=== PATIENT | female | born 1945 | race Caucasian/White ===

== ENCOUNTER → 2019-04-10 | Outpatient (CLI) | payer MEDICARE, OTHER ==
[~2019-04-10] MED LIST: ALBU2.5V8 INH; ATOR20TA58 PO; HEPARIN PF 500 UNIT/5 ML DISP.SYRIN. IVP ONE; HYDR-2145 PO; IOHEXOL 240 MG/ML 50ML VIAL. PO ONE; IOHEXOL 300 MG/ML 100ML VIAL. IV ONE; ONDA8TAB9 PO
--- NOTE | 2019-04-11 11:42 | RAD ---
Examination: CT NECK CHEST ABD PELVIS W CON History: Lung cancer-small cell Comparison/Correlation: 10/10/2018 CT chest without contrast Findings: Axial images of the neck, chest, abdomen, and pelvis were obtained following the oral contrast. Sagittal and coronal reformatted images were provided. Partially visualized paranasal sinuses are unremarkable. Parotid and submandibular glands are normal. Pharynx is symmetric. True and false cords are symmetric. No enlarged cervical lymph nodes are present. Right-sided infusion port is present with the tip terminating in the right atrium. Lower right paratracheal lymph nodes are present but not enlarged. Largest of these lymph nodes measures 0.6 cm diameter compared to the previous exam with the largest right paratracheal lymph node measured 2.1 cm in short axis diameter. There is a precarinal lymph node measuring up to 1.2 cm short axis diameter on axial image 25 of series 4. This previously measured up to 2.3 cm short axis diameter. Small pericardial effusion is present and of slightly high density with Hounsfield units of 24. Centrilobular emphysematous involvement of the lung lazaro is present. Lingular and minimal right middle lobe atelectasis and/or scarring is present. Spiculated process involving the right middle lobe corresponding to mass lesion seen at this level on the prior examination measures 2 cm x 1.7 cm on axial image 35 of series 4. Marked coronary arterial calcifications present. Small right pleural effusion is present. Diffuse emphysematous involvement of the lung lazaro noted. Small hiatal hernia is present. Liver and spleen are unremarkable. Pancreas is unremarkable. Adrenal glands are normal. Kidneys are unremarkable. No bowel obstruction or extraluminal gas. Umbilical midline abdominal wall hernia defect measuring 2.1 cm longitudinal is present. This hernia measures 1.2 cm transverse Spleen, pancreas, adrenal glands, and kidneys are unremarkable. Appendix is normal. Retroaortic left renal vein is present. Diverticulosis of the colon is present. No obstruction or extraluminal gas. No ascites or pelvic free fluid. No enlarged abdominal or pelvic lymph nodes. Nonenlarged aortocaval lymph nodes are present at the upper abdomen as well as to a lesser extent more inferiorly. Bladder is unremarkable. Bony structures are unremarkable. Impression: Marked improvement in superior mediastinal lymphadenopathy compared to the previous exam of 10/10/2018. There is an enlarged precarinal lymph node present but this also is notably decreased in size. Marked decrease in the right middle lobe mass. Currently has a scarred, spiculated appearance. Increased size of pericardial effusion which now has slightly complex density which may represent underlying proteinaceous and/or hemorrhagic components. Diverticulosis. Abdominal wall midline ventral hernia. PQRS Compliance Statement: One or more of the following individualized dose reduction techniques were utilized for this examination: 1. Automated exposure control 2. Adjustment of the mA and/or kV according to patient size 3. Use of iterative reconstruction technique : Dysphagia. Electronically signed by: Timbo Ramirez MD (04/11/2019 11:39 AM) [facility]
== END | disposition home or self-care (01) ==
LOC: CT 10:51
PROVIDERS: ATTEND Internal Medicine Hematology & Oncology
DX: C34.90 Malignant neoplasm of unspecified part of unspecified bronchus or lung (principal); J43.2 Centrilobular emphysema; J98.11 Atelectasis; I25.10 Atherosclerotic heart disease of native coronary artery without angina pectoris; J90 Pleural effusion, not elsewhere classified; K44.9 Diaphragmatic hernia without obstruction or gangrene; K42.9 Umbilical hernia without obstruction or gangrene; R59.0 Localized enlarged lymph nodes; I31.3 Pericardial effusion (noninflammatory); K43.9 Ventral hernia without obstruction or gangrene; I10 Essential (primary) hypertension; Z88.8 Allergy status to other drugs, medicaments and biological substances; Z87.891 Personal history of nicotine dependence
CPT/HCPCS: 70491; 71260; 74177; Q9966; Q9967

== ENCOUNTER 2019-04-17 06:44 | Outpatient (CLI) | payer MEDICARE, OTHER ==
[~2019-04-17] VITALS: Ht 156.2 cm; Wt 83.0 kg
[2019-04-17] VITALS (8 sets, daily range): BP systolic 136–206; BP diastolic 60–86
[2019-04-17 07:38] LABS: BASO % 0 % (0-3); EOS # 0.5 x10^3/uL (0.0-0.7); EOS % 7 % (0-3); HEMATOCRIT 34.2 % (36.0-47.0); HEMOGLOBIN 11.4 g/dL (12.0-15.5); LYMPH # 1.4 x10^3/uL (1.0-4.8); LYMPH % 17 % (24-48); MEAN CORPUSCULAR HEMOGLOBIN 32 pg (25-35); MEAN CORPUSCULAR HGB CONC 33 g/dL (31-37); MEAN CORPUSCULAR VOLUME 95 fL (79-100); MONO # 0.7 x10^3/uL (0.0-1.1); MONO % 9 % (0-9); NEUT # 5.3 x10^3/uL (1.8-7.7); NEUT % 67 % (31-73); PLATELET COUNT 215 x10^3/uL (140-400); RED CELL DISTRIBUTION WIDTH 16.5 % (11.5-14.5); WHITE BLOOD COUNT 7.9 x10^3/uL (4.0-11.0)
[2019-04-17 07:47] LABS: PROTHROMBIN TIME PATIENT 14.2 SEC (11.7-14.0)
[2019-04-17] MEDS ORDERED: HYDR-2145 PO (07:53)
[2019-04-17] MEDS ORDERED: ATOR20TA58 PO (07:53)
[2019-04-17] MEDS ORDERED: ALBU2.5V8 INH (07:53)
[2019-04-17] MEDS ORDERED: ONDA8TAB9 PO (07:53)
[2019-04-17] MEDS ORDERED: LIDOCAINE 1%/EPI 1:100,000 20 ML VIAL. ONE (08:40)
[2019-04-17] MEDS ORDERED: HEPARIN PF 500 UNIT/5 ML DISP.SYRIN. ONE (08:40)
[2019-04-17] MEDS ORDERED: VANCOMYCIN 1GM IVPB FOR OMNI 250 ML ONE (09:04)
[2019-04-17] MEDS ORDERED: fentaNYL PF VIAL 100 MCG/2 ML VIAL ONE (09:05)
[2019-04-17] MEDS ORDERED: MIDAZOLAM HCL/PF 2 MG/2 ML VIAL. ONE (09:05)
[2019-04-17] MEDS ORDERED: ONDANSETRON PF 4 MG/2 ML VIAL. ONE ×2 (09:05→09:21)
[2019-04-17] MEDS ORDERED: LIDOCAINE 1%/EPI 1:100,000 20 ML VIAL. INJ ONE (09:45)
[2019-04-17] MEDS ORDERED: MIDAZOLAM HCL/PF 2 MG/2 ML VIAL. IV ONE (09:45)
[2019-04-17] MEDS ORDERED: ONDANSETRON PF 4 MG/2 ML VIAL. IVP ONE (09:45)
[2019-04-17] MEDS ORDERED: VANCOMYCIN 1GM IVPB FOR OMNI 250 ML IV ONE (09:45)
[2019-04-17] MEDS ORDERED: fentaNYL PF VIAL 100 MCG/2 ML VIAL IV ONE (09:45)
[2019-04-17] MEDS ORDERED: HEPARIN PF 500 UNIT/5 ML DISP.SYRIN. IVP ONE (09:45)
[2019-04-17] MEDS ORDERED: hydrALAZINE 20 MG/ML VIAL. IVP ONE (10:00)
--- NOTE | 2019-04-17 10:12 | PDOC ---
MODERATE SEDATION ASSESSMENT RISKS/ALTERNATIVES Risks/Alternatives Risks and alternatives of this type of sedation and procedure discussed with: RISK/ALTERNATIVES: Patient H & P ON CHART H & P H & P on chart and reviewed for co-morbid conditions and appropriate labs. H&P ON CHART: Yes STATUS PREG STATUS ASSESSED: Yes MEDS/ALLERGIES REVIEWED Meds/Allergies Reviewed Medications and Allergies including time and route of recently administered narcotics and sedatives. MEDS/ALLERGIES REVIEWED: Yes ASA RATING ASA RATING: II AIRWAY ASSESSMENT Airway Assessment Airway patency, oral function limitations, presence of caps, crowns, dentures, partials, and ability to extend neck assessed. AIRWAY ASSESSMENT: Yes MALLAMPATI SCORE MALLAMPATI SCORE: II PRE-SEDATION ASSESSMENT PRE-SEDATION ASSESSMENT: Yes IRIS BERNAL MD Apr 17, 2019 10:12
--- NOTE | 2019-04-17 10:13 | PDOC ---
BRIEF OPERATIVE NOTE Pre-Op Diagnosis Port erosion Post-Op Diagnosis same Procedure Performed New left IJ port, removal of right IJ port Surgeon Ibrahima Anesthesia Type: Conscious Sedation Findings Port placement and port removal Complications No immediate IRIS BERNAL MD Apr 17, 2019 10:13
--- NOTE | 2019-04-17 12:01 | NUR ---
pt discharged to home with family. Instructions reviewed with pt. PIV dcd. Pt ambulated and tolerated PO
--- NOTE | 2019-04-17 14:35 | RAD ---
Procedure: Fluoroscopic and ultrasound-guided Port-A-Cath placement on the left, followed by fluoroscopic guided Port-A-Cath removal on the right Clinical Indication: Adult female requiring chemotherapy, with erosion of port on the right. Sedation: Conscious sedation was administered with a total intraprocedural lvqc-fs-hady time of 55 minutes. The patient was monitored by a qualified independent observer throughout the time of sedation. Please refer to the medical record for exact doses of medications utilized to achieve moderate sedation. Antibiotics: Antibiotic was administered intravenously within 1 hour of the procedure start time. Exposure: Kerma-Area Product: 1.3 Gycm2 OR Sterility: All elements of maximal sterile barrier technique including the use of a cap, mask, sterile gown, sterile gloves, large sterile sheet, appropriate hand hygiene, and 2% chlorhexidine for cutaneous antisepsis (or acceptable alternative antiseptic per current guidelines) were followed for this procedure. Consent: The procedure was explained in its entirety to the patient or the patients designated outside sales account representative by a member of the treatment team, including a discussion of the risks, benefits and commonly accepted alternatives to the procedure, as well as the expected consequences of no therapy whatsoever. Discussion of the risks included, but was not limited to, those that are most frequent and those that are rare but possibly severe or life-threatening, as well as the possibility of unforeseen complications. Technique and Findings: Following informed consent, the patient was prepped and draped in usual sterile fashion. Ultrasound interrogation of the left neck revealed patency and compressibility of the left internal jugular vein. A hardcopy ultrasound image was recorded as a 21-gauge micropuncture needle was used to gain access to this vessel. The needle was exchanged over a wire for a peel-away sheath. The skin over the left anterior chest wall was then copiously anesthetized with 1% lidocaine plus epinephrine. A small dermatotomy was made. Dissection techniques were used to create a pocket for the port. A Port-A-Cath was then tunneled subcutaneously towards the neck dermatotomy then deployed through the peel-away sheath under fluoroscopic guidance such that the distal tip resided in the proximal right atrium. The port was accessed and found to flush and aspirate with ease. The port was packed with heparin. The pocket was copiously irrigated with sterile saline then closed with deep interrupted and running subcuticular 4-0 Vicryl suture. Dermabond was used to close the left neck dermatotomy. Attention was then turned to the including right port. Fluoroscopy over this port demonstrated an intact IJ Port-A-Cath. 1% lidocaine was used to achieve local anesthesia over the port pocket. A dermatotomy was made and blunt dissection techniques were used to free the port from the pocket. The port was then removed in its entirety and hemostasis was achieved with manual compression. The pocket was copiously irrigated with sterile saline then closed with deep interrupted and subcuticular 4-0 Vicryl suture. The small area of erosion overlying the distal aspect of the port was minimally debrided and closed with deep interrupted 4-0 Vicryl suture as well. Postprocedural fluoroscopic spot view revealed no residual radiopaque foreign body on the right. Complications: No immediate Impression: 1. Ultrasound and fluoroscopic guided placement of a left Port-A-Cath as described. This port is suitable for use. 2. Fluoroscopic guided removal of a right Port-A-Cath as described.
== END 2019-04-17 12:03 | disposition home or self-care (01) ==
LOC: INTRAD 06:44
PROVIDERS: ATTEND Internal Medicine Hematology & Oncology
DX: T82.898A Other specified complication of vascular prosthetic devices, implants and grafts, initial encounter (principal); X58.XXXA Exposure to other specified factors, initial encounter; Y83.8 Other surgical procedures as the cause of abnormal reaction of the patient, or of later complication, without mention of misadventure at the time of the procedure; Y92.89 Other specified places as the place of occurrence of the external cause; Z79.01 Long term (current) use of anticoagulants
CPT/HCPCS: 36415; 36561; 36590; 76937; 77001; 85025; 85610; 99152; 99153; C1751; C1769; C1892; J1642; J2250; J2405; J3010; J3370; J3490

== ENCOUNTER → 2019-04-18 | Outpatient (CLI) | payer MEDICARE, OTHER ==
[2019-04-17 11:44] VITALS: BP 136/70
[~2019-04-18] MED LIST changes: +GADOTERATE 7.5 MMOL/15ML VIAL. IVP ONE; -HEPARIN PF 500 UNIT/5 ML DISP.SYRIN. IVP ONE; -IOHEXOL 240 MG/ML 50ML VIAL. PO ONE; -IOHEXOL 300 MG/ML 100ML VIAL. IV ONE
--- NOTE | 2019-04-18 11:12 | RAD ---
MRI Brain with and without contrast History: Lung cancer Technique: Multiplanar, multi sequential pre and postcontrast MR imaging was performed of the brain. Comparison: None Findings: There is no evidence of recent infarct or cytotoxic edema. The ventricles, sulci, and cisterns are within normal limits in size and configuration. There is no significant midline shift, intraaxial mass effect, or focal abnormal extra-axial fluid collection. There is scattered overall mild T2 and FLAIR hyperintense signal abnormality of the supratentorial parenchyma bilaterally symmetric in appearance without associated enhancement. There is no significant hemosiderin deposition of the brain parenchyma. There is no nodular parenchymal or leptomeningeal enhancement. There is preservation of the major intracranial flow-voids at the skull base. The cerebellar tonsils are normal in location. There is no significant abnormality of the pineal gland. There is mostly empty sella. Paranasal sinuses are overall aerated. The mastoid air cells are aerated. There is preserved marrow signal of the clivus. Impression: 1. There is no abnormal intracranial enhancement. Scattered overall mild T2 and FLAIR hyperintense signal abnormality of the supratentorial parenchyma bilaterally is nonspecific, more commonly due to chronic microvascular ischemic disease in a patient this age. Electronically signed by: Jeremy Escobedo MD (04/18/2019 11:09 AM) [id number]
== END ==
LOC: MRI 11:04
PROVIDERS: ATTEND Internal Medicine Hematology & Oncology
DX: C34.90 Malignant neoplasm of unspecified part of unspecified bronchus or lung (principal); I67.82 Cerebral ischemia; R94.02 Abnormal brain scan
CPT/HCPCS: 70553; A9575

== ENCOUNTER → 2019-07-12 | Outpatient (CLI) | payer MEDICARE, OTHER ==
[2019-04-17 11:44] VITALS: BP 136/70
[~2019-07-12] MED LIST changes: -GADOTERATE 7.5 MMOL/15ML VIAL. IVP ONE
--- NOTE | 2019-07-12 18:02 | RAD ---
EXAM: PET/CT SCAN INDICATION: Neuroendocrine tumor of lung COMPARISON: CT neck and chest abdomen and pelvis 04/10/2019 PET/CT SCAN TECHNIQUE: Approximately 60 minutes after the intravenous administration of 14.9 millicuries of F-18 fluorodeoxyglucose (FDG), PET imaging of the body from the base of the skull through the mid thighs was performed. Reconstruction in all 3 planes were performed. The patient's serum glucose level at the time of the F-18 FDG administration was 105 mg/dL. A noncontrast CT scan was obtained for attenuation correction and anatomic localization purposes only and is not considered a diagnostic CT scan. PQRS compliance Statement One or more of the following individualized dose reduction techniques were utilized for this study: 1. Automated exposure control 2. Adjustment of the mA and/or kV according to patient size 3. Use of iterative reconstruction technique FINDINGS: HEAD AND NECK: Physiologic radiotracer uptake in the brain, airway, parotid and submandibular glands. A small right thoracic inlet lymph node immediately posterior to the internal jugular vein and adjacent to the right common carotid artery measuring 7 mm short axis has slightly increased in size, previously 4 mm, and has increased FDG uptake with SUV max 4.05. A left level 2A cervical chain lymph node measuring 5 mm short axis is unchanged in size and has mild FDG uptake with SUV max 2.98. CHEST: Mediastinal blood pool SUV max is 3.1. The precarinal lymph node measuring 1 cm short axis is unchanged in size and has mild FDG uptake with SUV max 2.65. Small low right paratracheal lymph nodes and a subcarinal lymph node have mild FDG uptake with SUV max 2.3. The right middle lobe spiculated pulmonary nodule is slightly smaller, now 1.9 x 1.6 cm, grossly 2.0 x 1.7 cm, and has mild FDG uptake with SUV max 2.18. No new lymphadenopathy. Small to moderate pericardial effusion is unchanged. There is calcified atherosclerosis of the thoracic aorta and coronary arteries. Left chest wall port tip terminates in the superior cavoatrial junction. Mild atelectasis in the right middle lobe and lingula. ABDOMEN AND PELVIS: There is physiologic radiotracer uptake. SUV max in the liver is 2.7. No lymphadenopathy or abnormal radiotracer uptake in the abdomen and pelvis. Gallbladder surgically absent. There is severe calcified aortoiliac atherosclerosis. MUSCULOSKELETAL: No abnormal radiotracer uptake. Multilevel degenerative disc disease in the spine. IMPRESSION: 1. Slightly decreased size of right middle lobe spiculated pulmonary nodule with SUV max 2.3. 2. Mild FDG uptake in several small lymph nodes in the neck and chest: A 7 mm right thoracic inlet lymph node has slightly increased in size and has mildly increased FDG uptake with SUV max of 4.05. Unchanged small left level IIa cervical chain lymph node has SUV max 2.98. Unchanged small precarinal and low right paratracheal lymph nodes have SUV max of 2.3. 3. No abnormal radiotracer uptake or lymphadenopathy in the abdomen and pelvis. Electronically signed by: Liz Lopez MD (07/12/2019 5:59 PM) [id number]
== END | disposition home or self-care (01) ==
LOC: PETSC 10:04
PROVIDERS: ATTEND Internal Medicine Hematology & Oncology
DX: C34.90 Malignant neoplasm of unspecified part of unspecified bronchus or lung (principal); R91.1 Solitary pulmonary nodule; Z90.49 Acquired absence of other specified parts of digestive tract; I31.3 Pericardial effusion (noninflammatory); I70.0 Atherosclerosis of aorta; J98.11 Atelectasis
CPT/HCPCS: 78815; A9552

== ENCOUNTER → 2019-08-05 | Outpatient (CLI) | payer MEDICARE, OTHER ==
[2019-07-17 11:34] VITALS: BP 140/73
[~2019-08-05] MED LIST changes: +GADOTERATE 7.5 MMOL/15ML VIAL. IVP ONE
--- NOTE | 2019-08-05 09:45 | RAD ---
EXAMINATION: Magnetic resonance imaging (MRI) of the brain and brainstem without and with contrast 08/05/2019 8:15 AM HISTORY: History of lung cancer TECHNIQUE: Multiplanar multi-weighted MRI of the brain and brainstem was performed without and with intravenous contrast using the general brain protocol. Contrast information: 15 mL Gadolinium based contrast COMPARISON: None available. FINDINGS: The scalp and calvarium are normal. The superior sagittal sinus demonstrates normal venous flow. The corpus callosum is normal in shape and signal intensity. The posterior fossa is unremarkable. There is a partially empty sella turcica. The brainstem and craniocervical junction are unremarkable. There are T2/FLAIR signal hyperintense foci in the periventricular and subcortical white matter most suggestive of mild chronic small vessel ischemic changes. Diffusion weighted images reveal no hyperintensities to suggest acute cerebral infarction. There is a punctate focus of susceptibility artifact in the left frontal lobe, left middle frontal gyrus, which may represent a tiny cavernoma or remote microhemorrhage (series 7, image 15). The ventricles are normal in size and position without evidence of hydrocephalus. Postcontrast enhanced images are limited by motion artifact. There are no areas of abnormal contrast enhancement. The paranasal sinuses are normal. The visualized portions of the mastoids are unremarkable. The orbits appear normal. Normal flow voids are demonstrated in the carotid arteries and basilar artery. IMPRESSION: 1. No evidence for intracranial metastatic disease, although postcontrast enhanced images are limited by motion artifact. 2. No evidence for acute or subacute ischemia. 3. There are T2/FLAIR signal hyperintense foci in the periventricular and subcortical white matter most suggestive of mild chronic small vessel ischemic changes. 4. Punctate microhemorrhage or tiny cavernoma in the left middle frontal gyrus. Electronically signed by: Denia Chau MD (08/05/2019 9:43 AM) [facility]
== END | disposition home or self-care (01) ==
LOC: MRI 07:42
PROVIDERS: ATTEND Internal Medicine Hematology & Oncology
DX: C34.2 Malignant neoplasm of middle lobe, bronchus or lung (principal)
CPT/HCPCS: 70553; A9575

== ENCOUNTER → 2019-08-07 | Outpatient (CLI) | payer MEDICARE, OTHER ==
[2019-07-17 11:34] VITALS: BP 140/73
[~2019-08-07] MED LIST changes: -GADOTERATE 7.5 MMOL/15ML VIAL. IVP ONE
[2019-08-07 10:50] LABS: BASO % 0 % (0-3); EOS # 0.2 x10^3/uL (0.0-0.7); EOS % 2 % (0-3); HEMATOCRIT 37.2 % (36.0-47.0); HEMOGLOBIN 12.5 g/dL (12.0-15.5); LYMPH # 1.7 x10^3/uL (1.0-4.8); LYMPH % 24 % (24-48); MEAN CORPUSCULAR HEMOGLOBIN 29 pg (25-35); MEAN CORPUSCULAR HGB CONC 34 g/dL (31-37); MEAN CORPUSCULAR VOLUME 86 fL (79-100); MONO # 0.7 x10^3/uL (0.0-1.1); MONO % 10 % (0-9); NEUT # 4.5 x10^3/uL (1.8-7.7); NEUT % 63 % (31-73); PLATELET COUNT 192 x10^3/uL (140-400); RED BLOOD COUNT 4.33 x10^6/uL (3.50-5.40); WHITE BLOOD COUNT 7.2 x10^3/uL (4.0-11.0)
[2019-08-07 11:02] LABS: CREATININE 0.9 mg/dL (0.6-1.0); GFR 61.2; POTASSIUM 3.6 mmol/L (3.5-5.1)
[2019-08-07 11:06] LABS: ALBUMIN 3.6 g/dL (3.4-5.0); DIRECT BILIRUBIN 0.1 mg/dL (0.0-0.2); MAGNESIUM 1.6 mg/dL (1.8-2.4); TOTAL BILIRUBIN 0.5 mg/dL (0.2-1.0); TOTAL PROTEIN 7.6 g/dL (6.4-8.2)
[2019-08-07 11:15] LABS: FREE T4 1.01 ng/dL (0.76-1.46); THYROID STIM HORMONE (TSH) 1.202 uIU/mL (0.358-3.74)
== END ==
LOC: SPEC 10:09
PROVIDERS: ATTEND Physician Assistant
DX: C34.2 Malignant neoplasm of middle lobe, bronchus or lung (principal); I10 Essential (primary) hypertension
CPT/HCPCS: 36415; 80048; 80076; 83615; 83735; 84439; 84443; 85025

== ENCOUNTER → 2019-08-28 | Outpatient (CLI) | payer MEDICARE, OTHER ==
[2019-07-17 11:34] VITALS: BP 140/73
[2019-08-28 08:18] LABS: BASO % 1 % (0-3); EOS # 0.2 x10^3/uL (0.0-0.7); EOS % 2 % (0-3); HEMATOCRIT 36.8 % (36.0-47.0); HEMOGLOBIN 12.5 g/dL (12.0-15.5); LYMPH # 1.6 x10^3/uL (1.0-4.8); LYMPH % 24 % (24-48); MEAN CORPUSCULAR HEMOGLOBIN 29 pg (25-35); MEAN CORPUSCULAR HGB CONC 34 g/dL (31-37); MEAN CORPUSCULAR VOLUME 86 fL (79-100); MONO # 0.7 x10^3/uL (0.0-1.1); MONO % 11 % (0-9); NEUT # 4.2 x10^3/uL (1.8-7.7); NEUT % 62 % (31-73); PLATELET COUNT 200 x10^3/uL (140-400); RED BLOOD COUNT 4.29 x10^6/uL (3.50-5.40); RED CELL DISTRIBUTION WIDTH 16.7 % (11.5-14.5); WHITE BLOOD COUNT 6.7 x10^3/uL (4.0-11.0)
[2019-08-28 08:32] LABS: ALBUMIN 3.6 g/dL (3.4-5.0); ALBUMIN/GLOBULIN RATIO 0.9 (1.0-1.7); CREATININE 0.9 mg/dL (0.6-1.0); GFR 61.2; MAGNESIUM 2.1 mg/dL (1.8-2.4); TOTAL BILIRUBIN 0.3 mg/dL (0.2-1.0); TOTAL PROTEIN 7.7 g/dL (6.4-8.2)
[2019-08-28 08:40] LABS: FREE T4 0.89 ng/dL (0.76-1.46); THYROID STIM HORMONE (TSH) 1.706 uIU/mL (0.358-3.74)
== END | disposition home or self-care (01) ==
LOC: ONCLAB 08:03
PROVIDERS: ATTEND Physician Assistant
DX: C34.2 Malignant neoplasm of middle lobe, bronchus or lung (principal); I10 Essential (primary) hypertension
CPT/HCPCS: 36415; 80053; 83615; 83735; 84439; 84443; 85025

== ENCOUNTER → 2019-09-18 | Outpatient (CLI) | payer MEDICARE, OTHER ==
[2019-07-17 11:34] VITALS: BP 140/73
[2019-09-18 09:10] LABS: BASO % 1 % (0-3); EOS # 0.2 x10^3/uL (0.0-0.7); EOS % 2 % (0-3); HEMATOCRIT 37.1 % (36.0-47.0); HEMOGLOBIN 12.6 g/dL (12.0-15.5); LYMPH # 1.6 x10^3/uL (1.0-4.8); LYMPH % 21 % (24-48); MEAN CORPUSCULAR HEMOGLOBIN 30 pg (25-35); MEAN CORPUSCULAR HGB CONC 34 g/dL (31-37); MEAN CORPUSCULAR VOLUME 87 fL (79-100); MONO # 0.9 x10^3/uL (0.0-1.1); MONO % 11 % (0-9); NEUT # 4.8 x10^3/uL (1.8-7.7); NEUT % 65 % (31-73); PLATELET COUNT 199 x10^3/uL (140-400); RED BLOOD COUNT 4.25 x10^6/uL (3.50-5.40); RED CELL DISTRIBUTION WIDTH 16.4 % (11.5-14.5); WHITE BLOOD COUNT 7.5 x10^3/uL (4.0-11.0)
[2019-09-18 09:23] LABS: CALCIUM 9.2 mg/dL (8.5-10.1); GFR 54.2; POTASSIUM 3.8 mmol/L (3.5-5.1)
[2019-09-18 09:28] LABS: ALBUMIN 3.7 g/dL (3.4-5.0); ALBUMIN/GLOBULIN RATIO 0.9 (1.0-1.7); TOTAL BILIRUBIN 0.4 mg/dL (0.2-1.0); TOTAL PROTEIN 7.8 g/dL (6.4-8.2)
== END | disposition home or self-care (01) ==
LOC: ONCLAB 08:21
PROVIDERS: ATTEND Internal Medicine Hematology & Oncology
DX: C34.2 Malignant neoplasm of middle lobe, bronchus or lung (principal); E03.9 Hypothyroidism, unspecified
CPT/HCPCS: 36415; 80053; 84443; 85025

== ENCOUNTER → 2019-10-09 | Outpatient (CLI) | payer MEDICARE, OTHER ==
[2019-07-17 11:34] VITALS: BP 140/73
[2019-10-09 09:28] LABS: BASO % 0 % (0-3); EOS # 0.2 x10^3/uL (0.0-0.7); EOS % 2 % (0-3); HEMATOCRIT 36.8 % (36.0-47.0); HEMOGLOBIN 12.4 g/dL (12.0-15.5); LYMPH # 1.9 x10^3/uL (1.0-4.8); LYMPH % 23 % (24-48); MEAN CORPUSCULAR HEMOGLOBIN 30 pg (25-35); MEAN CORPUSCULAR HGB CONC 34 g/dL (31-37); MEAN CORPUSCULAR VOLUME 88 fL (79-100); MONO # 0.9 x10^3/uL (0.0-1.1); MONO % 11 % (0-9); NEUT # 5.2 x10^3/uL (1.8-7.7); NEUT % 63 % (31-73); PLATELET COUNT 247 x10^3/uL (140-400); RED BLOOD COUNT 4.18 x10^6/uL (3.50-5.40); RED CELL DISTRIBUTION WIDTH 16.3 % (11.5-14.5); WHITE BLOOD COUNT 8.2 x10^3/uL (4.0-11.0)
[2019-10-09 09:36] LABS: CALCIUM 8.8 mg/dL (8.5-10.1); CREATININE 0.8 mg/dL (0.6-1.0); GFR 70.1
[2019-10-09 09:42] LABS: ALBUMIN 3.5 g/dL (3.4-5.0); ALBUMIN/GLOBULIN RATIO 0.8 (1.0-1.7); DIRECT BILIRUBIN 0.1 mg/dL (0.0-0.2); TOTAL BILIRUBIN 0.4 mg/dL (0.2-1.0); TOTAL PROTEIN 7.7 g/dL (6.4-8.2)
== END | disposition home or self-care (01) ==
LOC: ONCLAB 08:21
PROVIDERS: ATTEND Internal Medicine Hematology & Oncology
DX: C34.2 Malignant neoplasm of middle lobe, bronchus or lung (principal)
CPT/HCPCS: 36415; 80053; 82248; 82607; 82728; 82746; 83540; 83550; 83615; 83735; 85025

== ENCOUNTER → 2019-10-29 | Outpatient (CLI) | payer MEDICARE, OTHER ==
[2019-07-17 11:34] VITALS: BP 140/73
[~2019-10-29] MED LIST changes: +CONTRAST GIVEN. MC PRN; +IOHEXOL 240 MG/ML 50ML VIAL. PO ONE; +IOHEXOL 300 MG/ML 100ML VIAL. IV ONE
--- NOTE | 2019-10-29 16:40 | RAD ---
EXAM: CT Chest with IV contrast INDICATION: Reason: SMALL CELL LUNG CANCER / Spl. Instructions: IV OMNI 300 75 MLS AND PO OMNI 240 50 MLS / History: TECHNIQUE: Multi-detector row CT images were acquired from the thoracic inlet through the upper abdomen with the use of IV contrast. Sagittal and coronal images were acquired from the transaxial data. All CT scans performed at this facility utilize dose optimization techniques as appropriate to the exam, including the following: Automated exposure control and adjustment of the mA and/or KV according to patient size (this includes techniques or standardized protocols for targeted exams where dose is indication/reason for exam). IV CONTRAST: Administered COMPARISON: 04/10/2019 CT soft tissue neck, and PET CT of 07/12/2019 FINDINGS: CARDIOVASCULAR: Persistent pericardial effusion measuring up to 1.3 cm in depth over the left ventricular free wall is present along with dense multivessel coronary calcifications and dense aortic calcifications including and calcifications in the aortic valve. No thoracic aortic aneurysm or evidence of flow-limiting stenosis. Left tunneled chest port is present with tip near the cavoatrial junction. MEDIASTINUM & LINA: No mass or adenopathy. LUNGS: Further decrease in size of the spiculated right middle lobe nodule along the major fissure with sacculations extending to the minor fissure and anterolateral surface lateral segment right middle lobe. On this exam, it measures 2.4 cm long by 1.2 cm tall by 1.8 cm wide, compared with the breath-hold CT measurement on 04/10/2019 of 2.8 x 1.4 x 2.1 cm (sagittal image 54 series 6 and axial image 33 series 2 this exam compared with sagittal image 89 series 10 and axial image 35 series 4 on 04/10/2019). Centrilobular pattern emphysema and numerous tiny micronodules are identified primarily in the bilateral upper lobes, similar to prior. PLEURAL SPACE: No pleural effusions or pneumothorax. OSSEOUS & SOFT TISSUE: Hypertrophied lower inner quadrant left breast vein is redemonstrated, communicating with the right internal mammary vein. No chest wall masses or axillary adenopathy. No acute or aggressive appearing osseous lesions. ABDOMEN: Left retroaortic renal vein. Cholecystectomy. Mild right renal cortical atrophy, partially imaged. IMPRESSION: Further decrease in size of the right middle lobe spiculated lung mass and otherwise stable findings in the chest including multiple tiny pulmonary micronodules, centrilobular emphysema, and moderately advanced atherosclerotic changes in the cardiovascular system with calcifications at the aortic valve as well and a moderate-sized pericardial effusion. Electronically signed by: Madeleine Carlin MD (10/29/2019 4:37 PM) [id number]
== END | disposition home or self-care (01) ==
LOC: CT 10:05
PROVIDERS: ATTEND Internal Medicine Hematology & Oncology
DX: C34.2 Malignant neoplasm of middle lobe, bronchus or lung (principal); R91.8 Other nonspecific abnormal finding of lung field; I25.10 Atherosclerotic heart disease of native coronary artery without angina pectoris; I70.0 Atherosclerosis of aorta; I31.3 Pericardial effusion (noninflammatory); J43.2 Centrilobular emphysema; N26.1 Atrophy of kidney (terminal); Z90.49 Acquired absence of other specified parts of digestive tract
CPT/HCPCS: 71260; 74177; Q9966; Q9967

== ENCOUNTER → 2019-10-30 | Outpatient (CLI) | payer MEDICARE, OTHER ==
[2019-07-17 11:34] VITALS: BP 140/73
[~2019-10-30] MED LIST changes: -CONTRAST GIVEN. MC PRN; -IOHEXOL 240 MG/ML 50ML VIAL. PO ONE; -IOHEXOL 300 MG/ML 100ML VIAL. IV ONE
[2019-10-30 09:09] LABS: BASO % 0 % (0-3); CALCIUM 8.8 mg/dL (8.5-10.1); EOS # 0.1 x10^3/uL (0.0-0.7); EOS % 2 % (0-3); GFR 54.2; HEMATOCRIT 36.1 % (36.0-47.0); LYMPH # 1.7 x10^3/uL (1.0-4.8); LYMPH % 21 % (24-48); MEAN CORPUSCULAR HEMOGLOBIN 30 pg (25-35); MEAN CORPUSCULAR HGB CONC 33 g/dL (31-37); MEAN CORPUSCULAR VOLUME 89 fL (79-100); MONO % 12 % (0-9); NEUT % 64 % (31-73); PLATELET COUNT 184 x10^3/uL (140-400); POTASSIUM 3.7 mmol/L (3.5-5.1); RED BLOOD COUNT 4.05 x10^6/uL (3.50-5.40); RED CELL DISTRIBUTION WIDTH 15.3 % (11.5-14.5); WHITE BLOOD COUNT 7.8 x10^3/uL (4.0-11.0)
[2019-10-30 09:14] LABS: ALBUMIN 3.6 g/dL (3.4-5.0); ALBUMIN/GLOBULIN RATIO 0.9 (1.0-1.7); TOTAL BILIRUBIN 0.3 mg/dL (0.2-1.0); TOTAL PROTEIN 7.4 g/dL (6.4-8.2)
== END | disposition home or self-care (01) ==
LOC: ONCLAB 08:41
PROVIDERS: ATTEND Physician Assistant
DX: C34.2 Malignant neoplasm of middle lobe, bronchus or lung (principal)
CPT/HCPCS: 36415; 80053; 83615; 85025

== ENCOUNTER → 2019-11-05 | Outpatient (CLI) | payer MEDICARE, OTHER ==
[2019-07-17 11:34] VITALS: BP 140/73
[~2019-11-05] MED LIST changes: +GADOTERATE 7.5 MMOL/15ML VIAL. IVP ONE
--- NOTE | 2019-11-05 11:53 | RAD ---
MR BRAIN WITH CONTRAST 11/05/2019 HISTORY: Reason: SMALL CELL LUNG CA / Spl. Instructions: 15ML DOTAREM / History: COMPARISON: MRI of the brain April 18, 2019, August 05, 2019 TECHNIQUE: Multiplanar multisequence MRI imaging of the brain was performed before and after the administration of contrast FINDINGS: Mild patchy periventricular and deep white matter high T2 hyperintensities are seen, similar to prior exams, consistent with chronic small vessel disease. No focal mass or masslike enhancement is identified.. No restricted diffusion to indicate an acute infarct. No evidence of acute intracranial hemorrhage. No acute extra-axial fluid collections are identified. There is no mass effect or midline shift. Ventricles and basilar cisterns are unremarkable. Vascular flow voids are unremarkable. Globes and orbits are unremarkable. IMPRESSION: No evidence of acute intracranial abnormality is identified. No evidence of intracranial metastatic disease is identified. Electronically signed by: Walt Jordan MD (11/05/2019 11:50 AM) [id number]
== END | disposition home or self-care (01) ==
LOC: MRI 10:09
PROVIDERS: ATTEND Physician Assistant
DX: C34.2 Malignant neoplasm of middle lobe, bronchus or lung (principal)
CPT/HCPCS: 70553; A9575

== ENCOUNTER → 2019-11-20 | Outpatient (CLI) | payer MEDICARE, OTHER ==
[2019-07-17 11:34] VITALS: BP 140/73
[~2019-11-20] MED LIST changes: -GADOTERATE 7.5 MMOL/15ML VIAL. IVP ONE
[2019-11-20 08:12] LABS: BASO % 1 % (0-3); EOS # 0.1 x10^3/uL (0.0-0.7); EOS % 2 % (0-3); HEMATOCRIT 36.5 % (36.0-47.0); HEMOGLOBIN 12.6 g/dL (12.0-15.5); LYMPH # 1.2 x10^3/uL (1.0-4.8); LYMPH % 16 % (24-48); MEAN CORPUSCULAR HEMOGLOBIN 30 pg (25-35); MEAN CORPUSCULAR HGB CONC 35 g/dL (31-37); MEAN CORPUSCULAR VOLUME 88 fL (79-100); MONO # 0.9 x10^3/uL (0.0-1.1); MONO % 12 % (0-9); NEUT # 5.3 x10^3/uL (1.8-7.7); NEUT % 71 % (31-73); PLATELET COUNT 186 x10^3/uL (140-400); RED BLOOD COUNT 4.15 x10^6/uL (3.50-5.40); RED CELL DISTRIBUTION WIDTH 14.6 % (11.5-14.5); WHITE BLOOD COUNT 7.5 x10^3/uL (4.0-11.0)
[2019-11-20 08:25] LABS: CALCIUM 9.1 mg/dL (8.5-10.1); CREATININE 0.8 mg/dL (0.6-1.0); GFR 70.1; POTASSIUM 3.4 mmol/L (3.5-5.1)
[2019-11-20 08:31] LABS: ALBUMIN 3.7 g/dL (3.4-5.0); ALBUMIN/GLOBULIN RATIO 0.9 (1.0-1.7); TOTAL BILIRUBIN 0.4 mg/dL (0.2-1.0); TOTAL PROTEIN 7.8 g/dL (6.4-8.2)
== END | disposition home or self-care (01) ==
LOC: ONCLAB 08:01
PROVIDERS: ATTEND Internal Medicine Hematology & Oncology
DX: C34.2 Malignant neoplasm of middle lobe, bronchus or lung (principal)
CPT/HCPCS: 36415; 80053; 84443; 85025

== ENCOUNTER → 2019-12-11 | Outpatient (CLI) | payer MEDICARE, OTHER ==
[2019-07-17 11:34] VITALS: BP 140/73
[2019-12-11 09:10] LABS: BASO % 1 % (0-3); EOS # 0.3 x10^3/uL (0.0-0.7); EOS % 5 % (0-3); HEMOGLOBIN 12.7 g/dL (12.0-15.5); LYMPH # 1.4 x10^3/uL (1.0-4.8); LYMPH % 19 % (24-48); MEAN CORPUSCULAR HEMOGLOBIN 30 pg (25-35); MEAN CORPUSCULAR HGB CONC 33 g/dL (31-37); MEAN CORPUSCULAR VOLUME 89 fL (79-100); MONO # 0.9 x10^3/uL (0.0-1.1); MONO % 12 % (0-9); NEUT # 4.7 x10^3/uL (1.8-7.7); NEUT % 64 % (31-73); PLATELET COUNT 224 x10^3/uL (140-400); RED BLOOD COUNT 4.25 x10^6/uL (3.50-5.40); RED CELL DISTRIBUTION WIDTH 14.6 % (11.5-14.5); WHITE BLOOD COUNT 7.4 x10^3/uL (4.0-11.0)
[2019-12-11 09:19] LABS: CALCIUM 9.4 mg/dL (8.5-10.1); CREATININE 0.8 mg/dL (0.6-1.0); GFR 70.1; POTASSIUM 3.8 mmol/L (3.5-5.1)
[2019-12-11 09:25] LABS: ALBUMIN 3.7 g/dL (3.4-5.0); ALBUMIN/GLOBULIN RATIO 0.8 (1.0-1.7); TOTAL BILIRUBIN 0.5 mg/dL (0.2-1.0); TOTAL PROTEIN 8.1 g/dL (6.4-8.2)
[2019-12-11 09:33] LABS: FREE T4 0.95 ng/dL (0.76-1.46); THYROID STIM HORMONE (TSH) 2.097 uIU/mL (0.358-3.74)
== END ==
LOC: ONCLAB 08:59
PROVIDERS: ATTEND Internal Medicine Hematology & Oncology
DX: C34.2 Malignant neoplasm of middle lobe, bronchus or lung (principal)
CPT/HCPCS: 36415; 80053; 84439; 84443; 85025

== ENCOUNTER → 2020-01-08 | Outpatient (CLI) | payer MEDICARE, OTHER ==
[2019-07-17 11:34] VITALS: BP 140/73
[2020-01-08 11:10] LABS: BASO # 0.1 x10^3/uL (0.0-0.2); BASO % 1 % (0-3); EOS # 0.7 x10^3/uL (0.0-0.7); EOS % 9 % (0-3); HEMATOCRIT 37.6 % (36.0-47.0); HEMOGLOBIN 12.7 g/dL (12.0-15.5); LYMPH # 1.4 x10^3/uL (1.0-4.8); LYMPH % 17 % (24-48); MEAN CORPUSCULAR HEMOGLOBIN 30 pg (25-35); MEAN CORPUSCULAR HGB CONC 34 g/dL (31-37); MEAN CORPUSCULAR VOLUME 89 fL (79-100); MONO # 0.7 x10^3/uL (0.0-1.1); MONO % 9 % (0-9); NEUT # 5.3 x10^3/uL (1.8-7.7); NEUT % 64 % (31-73); PLATELET COUNT 186 x10^3/uL (140-400); RED BLOOD COUNT 4.24 x10^6/uL (3.50-5.40); RED CELL DISTRIBUTION WIDTH 14.2 % (11.5-14.5); WHITE BLOOD COUNT 8.2 x10^3/uL (4.0-11.0)
[2020-01-08 11:24] LABS: CREATININE 0.9 mg/dL (0.6-1.0); GFR 61.2; POTASSIUM 3.9 mmol/L (3.5-5.1)
[2020-01-08 11:30] LABS: ALBUMIN 3.8 g/dL (3.4-5.0); TOTAL BILIRUBIN 0.5 mg/dL (0.2-1.0); TOTAL PROTEIN 7.6 g/dL (6.4-8.2)
[2020-01-09 14:12] LABS: KAPPA FREE 37.5 mg/L (3.3-19.4); KAPPA LAMBDA RATIO 2.18 (0.26-1.65); LAMBDA FREE 17.2 mg/L (5.7-26.3)
[2020-01-10 07:20] LABS: ALBUM 3.9 g/dL (2.9-4.4); ALPHA 1 0.3 g/dL (0.0-0.4); ALPHA 2 0.7 g/dL (0.4-1.0); BETA 0.9 g/dL (0.7-1.3); GAMMA 1.2 g/dL (0.4-1.8); SPEP AG RATIO 1.3 (0.7-1.7)
[2020-01-10 14:12] LABS: IMMUNOGLOBULIN A 221 mg/dL (64-422); IMMUNOGLOBULIN G 1250 mg/dL (586-1602); IMMUNOGLOBULIN M 99 mg/dL (26-217)
== END ==
LOC: ONCLAB 10:44
PROVIDERS: ATTEND Internal Medicine Hematology & Oncology
DX: C34.2 Malignant neoplasm of middle lobe, bronchus or lung (principal); D89.2 Hypergammaglobulinemia, unspecified
CPT/HCPCS: 36415; 80053; 82784; 83520; 84165; 85025; 86334

== ENCOUNTER → 2020-01-21 | Outpatient (CLI) | payer MEDICARE, OTHER ==
[2019-07-17 11:34] VITALS: BP 140/73
[2020-01-21 09:14] LABS: BASO % 1 % (0-3); EOS # 0.5 x10^3/uL (0.0-0.7); EOS % 6 % (0-3); HEMATOCRIT 37.1 % (36.0-47.0); HEMOGLOBIN 12.4 g/dL (12.0-15.5); LYMPH # 1.8 x10^3/uL (1.0-4.8); LYMPH % 23 % (24-48); MEAN CORPUSCULAR HEMOGLOBIN 30 pg (25-35); MEAN CORPUSCULAR HGB CONC 33 g/dL (31-37); MEAN CORPUSCULAR VOLUME 90 fL (79-100); MONO # 0.9 x10^3/uL (0.0-1.1); MONO % 12 % (0-9); NEUT # 4.7 x10^3/uL (1.8-7.7); NEUT % 59 % (31-73); PLATELET COUNT 181 x10^3/uL (140-400); RED BLOOD COUNT 4.14 x10^6/uL (3.50-5.40); RED CELL DISTRIBUTION WIDTH 15.1 % (11.5-14.5); WHITE BLOOD COUNT 7.9 x10^3/uL (4.0-11.0)
[2020-01-21 09:34] LABS: CALCIUM 8.9 mg/dL (8.5-10.1); CREATININE 0.9 mg/dL (0.6-1.0); GFR 61.2; POTASSIUM 4.3 mmol/L (3.5-5.1)
[2020-01-21 09:40] LABS: ALBUMIN 3.3 g/dL (3.4-5.0); ALBUMIN/GLOBULIN RATIO 0.9 (1.0-1.7); TOTAL BILIRUBIN 0.4 mg/dL (0.2-1.0); TOTAL PROTEIN 6.9 g/dL (6.4-8.2)
== END ==
LOC: ONCLAB 09:00
PROVIDERS: ATTEND Internal Medicine Hematology & Oncology
DX: C34.2 Malignant neoplasm of middle lobe, bronchus or lung (principal)
CPT/HCPCS: 36415; 80053; 85025

== ENCOUNTER → 2020-02-11 | Outpatient (CLI) | payer MEDICARE, OTHER ==
[2019-07-17 11:34] VITALS: BP 140/73
[2020-02-11 10:35] LABS: BASO % 1 % (0-3); EOS # 0.2 x10^3/uL (0.0-0.7); EOS % 3 % (0-3); HEMATOCRIT 33.8 % (36.0-47.0); HEMOGLOBIN 11.4 g/dL (12.0-15.5); LYMPH # 1.4 x10^3/uL (1.0-4.8); LYMPH % 20 % (24-48); MEAN CORPUSCULAR HEMOGLOBIN 30 pg (25-35); MEAN CORPUSCULAR HGB CONC 34 g/dL (31-37); MEAN CORPUSCULAR VOLUME 89 fL (79-100); MONO # 0.8 x10^3/uL (0.0-1.1); MONO % 12 % (0-9); NEUT # 4.3 x10^3/uL (1.8-7.7); NEUT % 64 % (31-73); PLATELET COUNT 197 x10^3/uL (140-400); WHITE BLOOD COUNT 6.8 x10^3/uL (4.0-11.0)
[2020-02-11 10:49] LABS: CALCIUM 9.1 mg/dL (8.5-10.1); CREATININE 0.7 mg/dL (0.6-1.0); GFR 81.8; POTASSIUM 3.7 mmol/L (3.5-5.1)
[2020-02-11 10:55] LABS: ALBUMIN 3.5 g/dL (3.4-5.0); ALBUMIN/GLOBULIN RATIO 0.9 (1.0-1.7); TOTAL BILIRUBIN 0.3 mg/dL (0.2-1.0); TOTAL PROTEIN 7.3 g/dL (6.4-8.2)
[2020-02-11 11:05] LABS: FREE T4 0.83 ng/dL (0.76-1.46); THYROID STIM HORMONE (TSH) 1.644 uIU/mL (0.358-3.74)
== END ==
LOC: ONCLAB 09:43
PROVIDERS: ATTEND Internal Medicine Hematology & Oncology
DX: C34.2 Malignant neoplasm of middle lobe, bronchus or lung (principal); I10 Essential (primary) hypertension
CPT/HCPCS: 36415; 80053; 84439; 84443; 85025

== ENCOUNTER → 2020-02-25 | Outpatient (CLI) | payer MEDICARE, OTHER ==
[2019-07-17 11:34] VITALS: BP 140/73
[~2020-02-25] MED LIST changes: +GADOTERATE 7.5 MMOL/15ML VIAL. IVP ONE
--- NOTE | 2020-02-25 11:05 | RAD ---
MRI of the Brain without and with Contrast 02/25/2020 Clinical History: Small cell lung cancer. Technique: Unenhanced T1-weighted sagittal and axial and FLAIR, T2-weighted, gradient echo and diffus ion-weighted axial images of the brain were obtained. After the intravenous administration of 15 cc o f CLARISCAN, enhanced T1-weighted axial, sagittal and coronal images of the brain were obtained. Findings: Comparison study is dated 11/05/2019. Images from the study are degraded by patient motion. There is generalized parenchymal atrophy. Patchy, confluent and multiple small focal areas of abnorma lly increased signal intensity are seen within the periventricular and subcortical white matter of luis th cerebral hemispheres on the FLAIR and T2-weighted images consistent with areas of small vessel isc hemic disease. These have not significantly changed. No acute parenchymal abnormality is seen. No abnormal area of contrast enhancement is noted. No extra -axial fluid collection is seen. There is no MRI evidence of acute ischemia/infarction. Very mild mucosal thickening is seen scattered throughout the paranasal sinuses. Normal flow voids ar e seen within the major vascular structures surrounding the brain parenchyma. Impression: No acute parenchymal abnormality is seen. There is no MRI evidence of metastatic disease involving the brain parenchyma. Electronically signed by: Jong Cuellar MD (02/25/2020 11:03 AM) [id number]
== END ==
LOC: MRI 08:50
PROVIDERS: ATTEND Internal Medicine Hematology & Oncology
DX: C34.2 Malignant neoplasm of middle lobe, bronchus or lung (principal); G31.9 Degenerative disease of nervous system, unspecified
CPT/HCPCS: 70553; A9575

== ENCOUNTER → 2020-03-03 | Outpatient (CLI) | payer MEDICARE, OTHER ==
[2019-07-17 11:34] VITALS: BP 140/73
[~2020-03-03] MED LIST changes: -GADOTERATE 7.5 MMOL/15ML VIAL. IVP ONE
[2020-03-03 10:47] LABS: BASO % 1 % (0-3); EOS # 0.2 x10^3/uL (0.0-0.7); EOS % 3 % (0-3); HEMATOCRIT 32.7 % (36.0-47.0); LYMPH # 1.5 x10^3/uL (1.0-4.8); LYMPH % 19 % (24-48); MEAN CORPUSCULAR HEMOGLOBIN 30 pg (25-35); MEAN CORPUSCULAR HGB CONC 34 g/dL (31-37); MEAN CORPUSCULAR VOLUME 89 fL (79-100); MONO % 13 % (0-9); NEUT # 5.2 x10^3/uL (1.8-7.7); NEUT % 65 % (31-73); PLATELET COUNT 254 x10^3/uL (140-400); RED BLOOD COUNT 3.66 x10^6/uL (3.50-5.40); RED CELL DISTRIBUTION WIDTH 14.5 % (11.5-14.5); WHITE BLOOD COUNT 7.9 x10^3/uL (4.0-11.0)
[2020-03-03 11:13] LABS: CALCIUM 9.1 mg/dL (8.5-10.1); CREATININE 0.9 mg/dL (0.6-1.0); POTASSIUM 3.7 mmol/L (3.5-5.1)
[2020-03-03 11:17] LABS: ALBUMIN 3.5 g/dL (3.4-5.0); ALBUMIN/GLOBULIN RATIO 0.8 (1.0-1.7); TOTAL BILIRUBIN 0.3 mg/dL (0.2-1.0); TOTAL PROTEIN 7.7 g/dL (6.4-8.2)
== END ==
LOC: ONCLAB 09:48
PROVIDERS: ATTEND Internal Medicine Hematology & Oncology
DX: C34.2 Malignant neoplasm of middle lobe, bronchus or lung (principal)
CPT/HCPCS: 36415; 80053; 85025

== ENCOUNTER → 2020-03-10 | Outpatient (CLI) | payer MEDICARE, OTHER ==
[2019-07-17 11:34] VITALS: BP 140/73
[~2020-03-10] MED LIST changes: +IOHEXOL 240 MG/ML 50ML VIAL. PO ONE; +IOHEXOL 300 MG/ML 100ML VIAL. IV ONE; +diphenhydrAMINE HCL 25 MG CAPSULE PO ONE
--- NOTE | 2020-03-11 09:27 | RAD ---
PQRS Compliance Statement: One or more of the following individualized dose reduction techniques were utilized for this examinat ion: 1. Automated exposure control 2. Adjustment of the mA and/or kV according to patient size 3. Use of iterative reconstruction technique CT CHEST+ABD+PELVIS W 03/10/2020 9:57 AM INDICATION: Small cell lung cancer COMPARISON: None available TECHNIQUE: Multiple axial CT images of the chest, abdomen and pelvis were obtained after the intraven ous administration of CT chest, abdomen and pelvis 10/29/2019, PET/CT 07/12/2019 mL Omnipaque 300. Coron al and sagittal reformats are provided. FINDINGS: Periaortic prevascular lymph node measures 6 mm (series 2, image 22), stable. Precarinal lymph node i s stable measuring 8 mm (series 2, image 24). No pathologically enlarged hilar lymph nodes are identi fied. Heart size within normal limits. There is a small to moderate-sized pericardial effusion, stabl e. Three-vessel coronary artery vascular calculations are identified. Thoracic aorta is normal in cou rse and caliber with moderate calcified atheromatous plaque. Left chest wall infusion port catheter i s identified in similar position. There is moderate centrilobular pulmonary emphysema. Bandlike thick ening identified within the right upper lobe suggestive of subsegmental atelectasis or scarring. Ther e is a spiculated nodule identified within the right middle lobe measuring 1.7 x 1.5 cm, not signific antly changed when measured in similar dimensions the prior examination from 10/29/2019. No new or enla rging solid noncalcified pulmonary nodules are identified. Bandlike thickening along the anterior asp ect of the left lower lobe most favor subsegmental atelectasis versus scarring. No pleural effusions, pulmonary vascular congestion or pneumothorax. Liver, spleen, bilateral adrenal glands and pancreas are normal in appearance. Mild fatty atrophy of the pancreas. Gallbladder surgically absent. There is a retroaortic left renal vein. Abdominal aorta is normal in caliber with dense calcified atheromatou s plaque. No pathologically enlarged lymph nodes are identified in abdomen and pelvis. There is no fr ee fluid or free intraperitoneal air. Kidneys enhance symmetrically. No suspicious renal mass or hydr onephrosis. Urinary bladder is within normal limits given degree of distention. No suspicious pelvic mass is identified. There is mild colonic diverticulosis. Appendix is normal in appearance. Oral cont rast was administered. Opacified bowel loops demonstrate normal mucosal fold pattern. No suspicious o sseous abnormality is identified. IMPRESSION: 1. Spiculated nodule within the right middle lobe measures 1.7 x 1.5 cm, stable. No evidence for dise ase progression. Extent 2. No new or enlarging thoracic lymphadenopathy, as described in detail above. 3. No evidence for metastatic disease involving the abdomen and pelvis. Electronically signed by: Denia Chau MD (03/11/2020 9:25 AM) [id number]
== END ==
LOC: CT 09:55
PROVIDERS: ATTEND Internal Medicine Hematology & Oncology
DX: C34.90 Malignant neoplasm of unspecified part of unspecified bronchus or lung (principal); I70.0 Atherosclerosis of aorta; I25.10 Atherosclerotic heart disease of native coronary artery without angina pectoris; K86.89 Other specified diseases of pancreas; N32.89 Other specified disorders of bladder; R91.1 Solitary pulmonary nodule; Z90.49 Acquired absence of other specified parts of digestive tract
CPT/HCPCS: 71260; 74177; Q9966; Q9967

== ENCOUNTER → 2020-03-24 | Outpatient (CLI) | payer MEDICARE, OTHER ==
[2019-07-17 11:34] VITALS: BP 140/73
[~2020-03-24] MED LIST changes: -IOHEXOL 240 MG/ML 50ML VIAL. PO ONE; -IOHEXOL 300 MG/ML 100ML VIAL. IV ONE; -diphenhydrAMINE HCL 25 MG CAPSULE PO ONE
[2020-03-24 10:15] LABS: BASO % 0 % (0-3); EOS # 0.2 x10^3/uL (0.0-0.7); EOS % 2 % (0-3); HEMATOCRIT 30.1 % (36.0-47.0); HEMOGLOBIN 10.2 g/dL (12.0-15.5); LYMPH % 14 % (24-48); MEAN CORPUSCULAR HEMOGLOBIN 30 pg (25-35); MEAN CORPUSCULAR HGB CONC 34 g/dL (31-37); MEAN CORPUSCULAR VOLUME 88 fL (79-100); MONO # 1.2 x10^3/uL (0.0-1.1); MONO % 16 % (0-9); NEUT # 5.2 x10^3/uL (1.8-7.7); NEUT % 68 % (31-73); PLATELET COUNT 265 x10^3/uL (140-400); RED BLOOD COUNT 3.44 x10^6/uL (3.50-5.40); RED CELL DISTRIBUTION WIDTH 13.8 % (11.5-14.5); WHITE BLOOD COUNT 7.6 x10^3/uL (4.0-11.0)
[2020-03-24 10:30] LABS: CALCIUM 9.1 mg/dL (8.5-10.1); GFR 54.1; POTASSIUM 3.8 mmol/L (3.5-5.1)
[2020-03-24 10:31] LABS: ALBUMIN 3.1 g/dL (3.4-5.0); ALBUMIN/GLOBULIN RATIO 0.7 (1.0-1.7); TOTAL BILIRUBIN 0.4 mg/dL (0.2-1.0); TOTAL PROTEIN 7.8 g/dL (6.4-8.2)
== END ==
LOC: ONCLAB 09:43
PROVIDERS: ATTEND Physician Assistant
DX: C34.2 Malignant neoplasm of middle lobe, bronchus or lung (principal); D69.6 Thrombocytopenia, unspecified
CPT/HCPCS: 36415; 80053; 83615; 85025

== ENCOUNTER → 2020-04-13 | Outpatient (CLI) | payer MEDICARE, OTHER ==
[2019-07-17 11:34] VITALS: BP 140/73
[2020-04-13 09:16] LABS: BASO % 1 % (0-3); EOS # 0.2 x10^3/uL (0.0-0.7); EOS % 4 % (0-3); HEMATOCRIT 30.3 % (36.0-47.0); LYMPH # 1.2 x10^3/uL (1.0-4.8); LYMPH % 20 % (24-48); MEAN CORPUSCULAR HEMOGLOBIN 30 pg (25-35); MEAN CORPUSCULAR HGB CONC 33 g/dL (31-37); MEAN CORPUSCULAR VOLUME 90 fL (79-100); MONO # 0.8 x10^3/uL (0.0-1.1); MONO % 12 % (0-9); NEUT # 3.9 x10^3/uL (1.8-7.7); NEUT % 63 % (31-73); PLATELET COUNT 223 x10^3/uL (140-400); RED BLOOD COUNT 3.38 x10^6/uL (3.50-5.40); RED CELL DISTRIBUTION WIDTH 15.4 % (11.5-14.5); WHITE BLOOD COUNT 6.1 x10^3/uL (4.0-11.0)
[2020-04-13 09:31] LABS: CREATININE 0.9 mg/dL (0.6-1.0); POTASSIUM 3.4 mmol/L (3.5-5.1)
[2020-04-13 09:34] LABS: ALBUMIN 3.3 g/dL (3.4-5.0); ALBUMIN/GLOBULIN RATIO 0.7 (1.0-1.7); TOTAL BILIRUBIN 0.4 mg/dL (0.2-1.0); TOTAL PROTEIN 7.9 g/dL (6.4-8.2)
[2020-04-17 18:09] LABS: METHYLMALONIC ACID 301 nmol/L (0-378)
== END ==
LOC: ONCLAB 08:27
PROVIDERS: ATTEND Physician Assistant
DX: C34.2 Malignant neoplasm of middle lobe, bronchus or lung (principal); D69.6 Thrombocytopenia, unspecified; I10 Essential (primary) hypertension
CPT/HCPCS: 36415; 80053; 82728; 83540; 83550; 83615; 83921; 84443; 85025

== ENCOUNTER → 2020-05-05 | Outpatient (CLI) | payer MEDICARE, OTHER ==
[2019-07-17 11:34] VITALS: BP 140/73
[2020-05-05 08:48] LABS: BASO % 1 % (0-3); EOS # 0.4 x10^3/uL (0.0-0.7); EOS % 5 % (0-3); HEMATOCRIT 32.4 % (36.0-47.0); HEMOGLOBIN 10.7 g/dL (12.0-15.5); LYMPH # 1.6 x10^3/uL (1.0-4.8); LYMPH % 21 % (24-48); MEAN CORPUSCULAR HEMOGLOBIN 30 pg (25-35); MEAN CORPUSCULAR HGB CONC 33 g/dL (31-37); MEAN CORPUSCULAR VOLUME 90 fL (79-100); MONO # 0.9 x10^3/uL (0.0-1.1); MONO % 12 % (0-9); NEUT # 4.7 x10^3/uL (1.8-7.7); NEUT % 62 % (31-73); PLATELET COUNT 184 x10^3/uL (140-400); RED CELL DISTRIBUTION WIDTH 14.9 % (11.5-14.5); WHITE BLOOD COUNT 7.6 x10^3/uL (4.0-11.0)
[2020-05-05 08:58] LABS: CALCIUM 8.8 mg/dL (8.5-10.1); CREATININE 0.9 mg/dL (0.6-1.0)
[2020-05-05 09:06] LABS: ALBUMIN 3.7 g/dL (3.4-5.0); ALBUMIN/GLOBULIN RATIO 0.9 (1.0-1.7); TOTAL BILIRUBIN 0.5 mg/dL (0.2-1.0); TOTAL PROTEIN 7.6 g/dL (6.4-8.2)
[2020-05-05 09:12] LABS: FREE T4 0.84 ng/dL (0.76-1.46); THYROID STIM HORMONE (TSH) 1.747 uIU/mL (0.358-3.74)
== END ==
LOC: ONCLAB 08:25
PROVIDERS: ATTEND Internal Medicine Hematology & Oncology
DX: C34.2 Malignant neoplasm of middle lobe, bronchus or lung (principal); E05.80 Other thyrotoxicosis without thyrotoxic crisis or storm
CPT/HCPCS: 36415; 80053; 83615; 84439; 84443; 85025

== ENCOUNTER → 2020-05-26 | Outpatient (CLI) | payer MEDICARE, OTHER ==
[2019-07-17 11:34] VITALS: BP 140/73
[2020-05-26 10:15] LABS: BASO # 0.1 x10^3/uL (0.0-0.2); BASO % 1 % (0-3); EOS # 0.4 x10^3/uL (0.0-0.7); EOS % 5 % (0-3); HEMOGLOBIN 10.8 g/dL (12.0-15.5); LYMPH # 1.4 x10^3/uL (1.0-4.8); LYMPH % 20 % (24-48); MEAN CORPUSCULAR HEMOGLOBIN 30 pg (25-35); MEAN CORPUSCULAR HGB CONC 34 g/dL (31-37); MEAN CORPUSCULAR VOLUME 90 fL (79-100); MONO % 14 % (0-9); NEUT # 4.2 x10^3/uL (1.8-7.7); NEUT % 60 % (31-73); PLATELET COUNT 200 x10^3/uL (140-400); RED BLOOD COUNT 3.55 x10^6/uL (3.50-5.40); RED CELL DISTRIBUTION WIDTH 14.9 % (11.5-14.5); WHITE BLOOD COUNT 7.1 x10^3/uL (4.0-11.0)
[2020-05-26 10:29] LABS: CALCIUM 8.8 mg/dL (8.5-10.1); CREATININE 1.1 mg/dL (0.6-1.0); GFR 48.4; POTASSIUM 3.9 mmol/L (3.5-5.1)
[2020-05-26 10:34] LABS: ALBUMIN 3.6 g/dL (3.4-5.0); ALBUMIN/GLOBULIN RATIO 0.8 (1.0-1.7); TOTAL BILIRUBIN 0.3 mg/dL (0.2-1.0)
== END ==
LOC: ONCLAB 09:36
PROVIDERS: ATTEND Internal Medicine Hematology & Oncology
DX: C34.2 Malignant neoplasm of middle lobe, bronchus or lung (principal)
CPT/HCPCS: 36415; 80053; 85025

== ENCOUNTER → 2020-06-08 | Outpatient (CLI) | payer MEDICARE, OTHER ==
[2019-07-17 11:34] VITALS: BP 140/73
[~2020-06-08] MED LIST changes: +CONTRAST GIVEN. MC PRN; +GADOTERATE 7.5 MMOL/15ML VIAL. IVP ONE; +IOHEXOL 240 MG/ML 50ML VIAL. PO ONE; +IOHEXOL 300 MG/ML 100ML VIAL. IV ONE
--- NOTE | 2020-06-08 12:51 | RAD ---
EXAM: Chest, abdomen and pelvis CT with intravenous contrast. HISTORY: Small cell lung cancer restaging. TECHNIQUE: Computed tomographic images of the chest, abdomen and pelvis were obtained following the a dministration of intravenous contrast. Multiplanar reformatting was performed. *One or more of the following individualized dose reduction techniques were utilized for this examina tion: 1. Automated exposure control. 2. Adjustment of the mA and/or kV according to patient size. 3. Use of iterative reconstruction technique. COMPARISON: 10/29/2019. FINDINGS: Chest: There has been no significant change in a 2.0 cm spiculated nodule with surrounding groundglas s within the right middle lobe. There is additional stable adjacent 1.2 cm irregular paramediastinal nodular opacity with surrounding groundglass within the right middle lobe. This is superimposed on ri ght middle lobe pleural parenchymal scarring. There is stable lingular pleural proximal scarring. The re is pulmonary emphysema. There is no infiltrate. There is a stable moderate pericardial effusion. T here is calcification of the aortic valve and calcified atherosclerotic plaque throughout the aorta, aortic great vessels and coronary arteries. There is a port catheter in the superior cavoatrial junct ion. There has been no change in previously described prevascular and precarinal lymph nodes. There i s no new lymphadenopathy. No discrete thyroid nodule is seen. There is a tiny hiatal hernia and stabl e adjacent right distal paraesophageal lymph node. There are degenerative changes throughout the spin e. Abdomen and pelvis: No hepatic lesion is seen. The gallbladder is absent. The pancreas, spleen and ad renal glands are unremarkable. There are renal vascular calcifications. There is no suspicious renal lesion or hydronephrosis. There is no appendicitis. There is no bowel obstruction. There is moderate colonic stool. There is sigmoid diverticulosis. The urinary bladder is unremarkable. The uterus is ab sent. There is calcified atherosclerotic plaque involving the aorta and main aortic branch vessels. T here is a retroaortic left renal vein, a normal variant. There is a small fat-containing umbilical he rnia. There are degenerative changes throughout the spine. There is no suspicious osseous lesion. The re is no lymphadenopathy. IMPRESSION: 1. Stable spiculated nodule within the lateral right middle lobe measuring 2.0 cm and stable 1.2 cm s piculated nodular opacity within the medial right middle lobe. This is superimposed on right middle l obe pleural parenchymal scarring. 2. Stable prominent mediastinal lymph nodes. 3. Emphysema. 4. Stable moderate pericardial effusion. 5. Sigmoid diverticulosis. 6. Small hiatal hernia and fat-containing umbilical hernia. Electronically signed by: Stephie Rhodes MD (06/08/2020 12:49 PM) [id number]
--- NOTE | 2020-06-08 14:29 | RAD ---
MRI BRAIN WO+W Date: 06/08/2020 10:24 AM Indication: LUNG CANCER Comparison: 02/25/2020. Technique: Multiplanar multisequence MRI of the brain was performed with and without intravenous cont rast using the standard protocol. 15 cc Clariscan contrast was administered intravenously during the exam. Findings: No acute infarct. No acute or chronic hemorrhage. The ventricles are normal in size and configuration without hydrocephalus. Mild scattered FLAIR hyperintensities in the subcortical and periventricular deep white matter, a nonspecific finding, most commonly seen with chronic small vessel ischemic disea se. No abnormal enhancement. The scalp and calvarium are normal. The pituitary and sella are normal. No Chiari malformation. The v isualized upper cervical spine is normal. The visualized orbits and globes are normal. The visualized paranasal sinuses are clear. The mastoid air cells are clear. Normal flow voids within the vertebral, basilar, and internal carotid arteries indicating patency. IMPRESSION: No evidence of intracranial metastatic disease. Electronically signed by: Jeremy Ramirez MD (06/08/2020 2:26 PM) [id number]
== END ==
LOC: CT 11:27
PROVIDERS: ATTEND Physician Assistant
DX: C34.2 Malignant neoplasm of middle lobe, bronchus or lung (principal); K44.9 Diaphragmatic hernia without obstruction or gangrene; I31.3 Pericardial effusion (noninflammatory); K57.30 Diverticulosis of large intestine without perforation or abscess without bleeding; R91.1 Solitary pulmonary nodule; J43.9 Emphysema, unspecified
CPT/HCPCS: 70553; 71260; 74177; A9575; Q9966; Q9967

== ENCOUNTER → 2020-06-16 | Outpatient (CLI) | payer MEDICARE, OTHER ==
[2019-07-17 11:34] VITALS: BP 140/73
[~2020-06-16] MED LIST changes: -CONTRAST GIVEN. MC PRN; -GADOTERATE 7.5 MMOL/15ML VIAL. IVP ONE; -IOHEXOL 240 MG/ML 50ML VIAL. PO ONE; -IOHEXOL 300 MG/ML 100ML VIAL. IV ONE
[2020-06-16 11:17] LABS: BASO % 1 % (0-3); EOS # 0.3 x10^3/uL (0.0-0.7); EOS % 4 % (0-3); HEMATOCRIT 31.1 % (36.0-47.0); HEMOGLOBIN 10.5 g/dL (12.0-15.5); LYMPH # 1.6 x10^3/uL (1.0-4.8); LYMPH % 22 % (24-48); MEAN CORPUSCULAR HEMOGLOBIN 30 pg (25-35); MEAN CORPUSCULAR HGB CONC 34 g/dL (31-37); MEAN CORPUSCULAR VOLUME 89 fL (79-100); MONO # 0.8 x10^3/uL (0.0-1.1); MONO % 11 % (0-9); NEUT # 4.5 x10^3/uL (1.8-7.7); NEUT % 62 % (31-73); PLATELET COUNT 263 x10^3/uL (140-400); RED BLOOD COUNT 3.51 x10^6/uL (3.50-5.40); RED CELL DISTRIBUTION WIDTH 14.4 % (11.5-14.5); WHITE BLOOD COUNT 7.3 x10^3/uL (4.0-11.0)
[2020-06-16 11:46] LABS: CALCIUM 9.4 mg/dL (8.5-10.1); CREATININE 0.9 mg/dL (0.6-1.0); POTASSIUM 3.8 mmol/L (3.5-5.1)
[2020-06-16 11:54] LABS: ALBUMIN 3.7 g/dL (3.4-5.0); ALBUMIN/GLOBULIN RATIO 0.8 (1.0-1.7); TOTAL BILIRUBIN 0.2 mg/dL (0.2-1.0); TOTAL PROTEIN 8.1 g/dL (6.4-8.2)
[2020-06-16 12:01] LABS: FREE T4 0.95 ng/dL (0.76-1.46); THYROID STIM HORMONE (TSH) 3.445 uIU/mL (0.358-3.74)
== END ==
LOC: ONCLAB 10:14
PROVIDERS: ATTEND Physician Assistant
DX: C34.2 Malignant neoplasm of middle lobe, bronchus or lung (principal); Z79.899 Other long term (current) drug therapy
CPT/HCPCS: 36415; 80053; 83615; 84439; 84443; 85025

== ENCOUNTER → 2020-07-07 | Outpatient (CLI) | payer MEDICARE, OTHER ==
[2019-07-17 11:34] VITALS: BP 140/73
[2020-07-07 10:01] LABS: BASO % 1 % (0-3); EOS # 0.4 x10^3/uL (0.0-0.7); EOS % 7 % (0-3); HEMATOCRIT 32.7 % (36.0-47.0); HEMOGLOBIN 10.9 g/dL (12.0-15.5); LYMPH # 1.3 x10^3/uL (1.0-4.8); LYMPH % 21 % (24-48); MEAN CORPUSCULAR HEMOGLOBIN 30 pg (25-35); MEAN CORPUSCULAR HGB CONC 33 g/dL (31-37); MEAN CORPUSCULAR VOLUME 89 fL (79-100); MONO # 0.7 x10^3/uL (0.0-1.1); MONO % 12 % (0-9); NEUT # 3.5 x10^3/uL (1.8-7.7); NEUT % 58 % (31-73); PLATELET COUNT 192 x10^3/uL (140-400); RED BLOOD COUNT 3.66 x10^6/uL (3.50-5.40); RED CELL DISTRIBUTION WIDTH 14.7 % (11.5-14.5)
[2020-07-07 10:20] LABS: CALCIUM 8.7 mg/dL (8.5-10.1); GFR 54.1; POTASSIUM 3.9 mmol/L (3.5-5.1)
[2020-07-07 10:28] LABS: ALBUMIN 3.8 g/dL (3.4-5.0); ALBUMIN/GLOBULIN RATIO 0.9 (1.0-1.7); TOTAL BILIRUBIN 0.3 mg/dL (0.2-1.0)
[2020-07-07 10:45] LABS: FREE T4 0.94 ng/dL (0.76-1.46); THYROID STIM HORMONE (TSH) 1.478 uIU/mL (0.358-3.74)
== END ==
LOC: ONCLAB 09:29
PROVIDERS: ATTEND Internal Medicine Hematology & Oncology
DX: E05.80 Other thyrotoxicosis without thyrotoxic crisis or storm (principal)
CPT/HCPCS: 36415; 80053; 83615; 84439; 84443; 85025

== ENCOUNTER → 2020-09-02 | Outpatient (CLI) | payer MEDICARE, OTHER ==
[2019-07-17 11:34] VITALS: BP 140/73
[~2020-09-02] MED LIST changes: +GADOTERATE 7.5 MMOL/15ML VIAL. IVP ONE; +IOHEXOL 240 MG/ML 50ML VIAL. PO ONE; +IOHEXOL 300 MG/ML 100ML VIAL. IV ONE
--- NOTE | 2020-09-02 10:56 | RAD ---
EXAM: Brain MRI with and without contrast. HISTORY: Small cell lung cancer restaging. TECHNIQUE: Multiplanar, multisequence magnetic resonance imaging of the brain was performed prior to and following the administration of intravenous contrast. COMPARISON: 06/08/2020 FINDINGS: There is no restricted diffusion to suggest acute or subacute infarction. There is no susce ptibility effect to suggest hemorrhage. There is no mass effect or midline shift. There is no hydroce phalus. There are multiple scattered focal areas of signal change within the cerebral white matter, likely du e to chronic small vessel disease. No suspicious enhancing lesion is seen. There is no calvarial lesi on. There is a stable prominent empty or partially empty sella. The orbits are unremarkable. There is mild ethmoid sinus mucosal thickening. The mastoid air cells ar e clear. There are normal flow voids within the cerebral vessels. IMPRESSION: 1. No acute intracranial finding or evidence of intracranial metastatic disease. 2. Bilateral cerebral white matter changes, likely due to chronic small vessel disease. Electronically signed by: Stepihe Rhodes MD (09/02/2020 10:54 AM) [id number]
--- NOTE | 2020-09-02 11:50 | RAD ---
EXAM: Chest, abdomen and pelvis CT with intravenous contrast. HISTORY: Small cell lung cancer restaging. TECHNIQUE: Computed tomographic images of the chest, abdomen and pelvis were obtained following the a dministration of intravenous contrast. Multiplanar reformatting was performed. *One or more of the following individualized dose reduction techniques were utilized for this examina tion: 1. Automated exposure control. 2. Adjustment of the mA and/or kV according to patient size. 3. Use of iterative reconstruction technique. COMPARISON: 06/08/2020. FINDINGS: Chest: There has been no significant change in a 2.0 cm suspected nodule with surrounding g roundglass within the right middle lobe. There is a stable adjacent 1.2 cm irregular nodular opacity with surrounding groundglass within the medial right middle lobe. This is superimposed on a right mid dle lobe pleural parenchymal scarring. There is stable anterior left upper lobe and lingular and late ral left lower lobe pleural parenchymal scarring. There is emphysema. There is no pneumothorax or ple ural effusion. There is a stable 5 mm groundglass opacity within the superior segment of the right lo wer lobe along the pleural fissure. There is a stable 3 mm groundglass nodule within the posterior le ft upper lobe. There is a stable 6 mm groundglass nodule within the right lower lobe. There is stable 2 mm groundglass nodule within the posterior left lower lobe. The heart is normal in size. There is stable small to moderate pericardial effusion. There is dense c alcification of the coronary arteries. There is calcification of the aortic valve. There is a left ch est wall port catheter in expected position. There are stable nonspecific mediastinal and hilar lymph nodes. There are stable distal paraesophageal lymph nodes. There is stable reflux of contrast into t he left chest wall. There are degenerative changes involving the spine. There is no acute or suspicio us osseous lesion. Abdomen and pelvis: No hepatic lesion is seen. The gallbladder is absent. The pancreas, spleen and ad renal glands are unremarkable. There is right renal cortical lobulation likely due to scarring. There is no hydronephrosis. There is no appendicitis or bowel obstruction. There is sigmoid diverticulosis . The bladder is unremarkable. The uterus and ovaries are absent. There is aortic and aortic branch v essel atherosclerosis. No pathologically enlarged lymph node is seen. There is a small fat-containing umbilical hernia. There are degenerative changes involving the spine and both hips. There is no acut e or suspicious osseous lesion. IMPRESSION: 1. Stable irregular nodular opacity with surrounding groundglass measuring approximately 2.0 cm withi n the right middle lobe and adjacent 1.2 cm irregular paramediastinal nodular opacity with surroundin g groundglass within the right middle lobe with surrounding pleural parenchymal scarring. 2. Multiple stable tiny groundglass nodular opacities within both lungs, described in detail above. T his may be postinfectious or postinflammatory. Continued attention at the time of follow-up is recomm ended. 3. Pulmonary emphysema. 4. Stable pericardial effusion. 5. Stable prominent mediastinal and hilar lymph nodes. 6. Sigmoid diverticulosis. 7. Small fat-containing umbilical hernia. Electronically signed by: Stephie Rhodes MD (09/02/2020 11:47 AM) [id number]
--- NOTE | 2020-09-02 12:03 | RAD ---
EXAM: Right lower extremity venous Doppler sonogram. HISTORY: Pain and swelling. TECHNIQUE: Philip scale and color Doppler sonographic evaluation of the right lower extremity veins wit h spectral waveform analysis was performed. FINDINGS: There is normal color flow, normal compressibility and there are normal spectral waveforms in the common femoral, superficial femoral, popliteal, posterior tibial and greater saphenous veins. IMPRESSION: No Doppler evidence of lower extremity deep venous thrombosis. Electronically signed by: Stephie Rhodes MD (09/02/2020 12:01 PM) [id number]
== END ==
LOC: MRI 09:37
PROVIDERS: ATTEND Physician Assistant
DX: C34.2 Malignant neoplasm of middle lobe, bronchus or lung (principal); R91.8 Other nonspecific abnormal finding of lung field; J43.9 Emphysema, unspecified; J98.4 Other disorders of lung; I31.3 Pericardial effusion (noninflammatory); K57.30 Diverticulosis of large intestine without perforation or abscess without bleeding; K42.9 Umbilical hernia without obstruction or gangrene; I25.10 Atherosclerotic heart disease of native coronary artery without angina pectoris; I35.8 Other nonrheumatic aortic valve disorders; R59.0 Localized enlarged lymph nodes; Q63.1 Lobulated, fused and horseshoe kidney; I70.0 Atherosclerosis of aorta
CPT/HCPCS: 70553; 71260; 74177; 93971; A9575; Q9966; Q9967